=== PATIENT | male | born 1980 | race Caucasian/White ===

== ENCOUNTER → 2017-11-17 15:21 | Outpatient (CLI) | payer MEDICARE, SELFPAY ==
[2017-11-17 16:50] LABS: Amphetamine Urine VISTA NEGATIVE (<1000 ng/mL); Barbiturate Urine VISTA NEGATIVE (< 200 ng/mL); Benzodiazepine Urine VISTA NEGATIVE (< 200 ng/mL); Cocaine Urine VISTA NEGATIVE (< 300 ng/mL); Ecstacy Urine VISTA NEGATIVE (< 500 ng/mL); Methadone Urine VISTA NEGATIVE (< 300 ng/mL); PCP Urine VISTA NEGATIVE (< 25 ng/mL); THC Urine VISTA NEGATIVE (< 50 ng/mL); Vista UDS pH Range 7
== END ==
PROVIDERS: Visit Provider Anesthesiology Pain Medicine
DX: F11.20 Opioid dependence, uncomplicated (principal)
CPT/HCPCS: 80307

== ENCOUNTER 2018-10-04 17:05 | Inpatient (IN) | payer MEDICARE, SELFPAY ==
[2016-02-25 19:01] VITALS: BMI 29.9
[2018-10-04 17:33] VITALS: BMI 26.9
[2018-10-04 17:34] VITALS: BMI 26.9
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
[2018-10-04 20:00] VITALS: BP 114/68; PULSE 86; RESP 16; TEMP 36.6; O2SAT 99
[2018-10-04] MEDS: Sertraline 50 MG Tablet PO (20:04)
[2018-10-04 21:00] VITALS: BP 111/76; PULSE 82; RESP 16; TEMP 36.8; O2SAT 100
[2018-10-04 22:20] VITALS: BP 120/71; PULSE 83; RESP 16; TEMP 36.9; O2SAT 99
[2018-10-04] MEDS: Acetaminophen 325 MG Tablet PO (22:31)
[2018-10-04] MEDS: oxyCODONE 5 MG Tablet PO (22:32)
[2018-10-04 23:00] VITALS: BP 119/78; PULSE 83; RESP 16; TEMP 36.8; O2SAT 100
[2018-10-05] VITALS (21 sets, daily range): BP systolic 111–147; BP diastolic 62–88; PULSE 62–92; RESP 16; TEMP 36.6–36.9; O2SAT 96–100
[2018-10-05] MEDS: Acetaminophen 325 MG Tablet PO (04:33)
[2018-10-05] MEDS: oxyCODONE 5 MG Tablet PO (04:33)
[2018-10-05] MEDS: Methylphenidate HCl 5 MG Tablet 10 MG PO ×3 (07:05→16:37)
--- NOTE | 2018-10-05 10:25 | CASEMGMT ---
RN AYDIN DEPUTY DIRECTOR OF FINANCE CM to room to meet with patient for initial transition planning/care coordination assessment. SIERRA PERRIN introduced self and role at [facility]. Pt voices understanding and consents to assessment at this time. Pt resting in bed in no distress at this time. Pt is A/O at this time and answers all questions appropriately. Care providers, pharmacy, and demographics verified/updated at this time. PCP: Easton Gilbert Specialists: Lyndsey, pain mgmt. Sybil Neurosurgeon @ [place] Preferred Pharmacy: [facility] Insurance: [facility] A & B Prescription Benefit: Yes but does not remember the name Living Will/HPOA: States does not have LW, but has HCPOA, who is his mother, Shira Valdivia. Copies not on file. Pt state he will ask his mother if she can bring in paperwork. LNOK: Mom and dad Living Arrangements: Lives with his parents in the basement of their cabin. States there are rails on the stairs and denies concerns. Independent. States parents are supportive and able to help if needed. DME: [facility] has the following DME: Uses a cane on occasion. Has a shower chair, walker, and W/C but does not use these currently. Pt states no need for further DME at this time. HHC/SNF: Has used a HHC in [facility] in the past but does not remember the name of the agency. Has been to [place], [facility], and [facility]. Denies need for HHC on discharge. Pt wishes to return home and states has no concerns with going home at time of discharge. CM to follow for and further discharge planning/needs. Pt voices no further concerns/needs at this time. Advised pt to ask for CM if any further questions/concerns/needs arise. Voices understanding. PLAN: Home with family support. Alo FRANCISCO RN, CM
[2018-10-05] MEDS: Sertraline 50 MG Tablet PO (11:43)
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
--- NOTE | 2018-10-05 22:41 | NURSING ---
pt notified of Dr. Solorio response concerning intrathecal and order for benadryl. Pt became angry swearing and yelling that he was going to pull out cath and leave and that he cant take benadryl, offered to get pt vistaril pt agreed. pt on phone with his mother.
--- NOTE | 2018-10-05 22:45 | NURSING ---
took in vistaril pt continued to be angry told nurse to get out he refused offer of vistaril. states he is worried about getting another infection. offered to call Dr. Solorio again. pagehao and notified that pt and his mother are concerned that pt is getting an infection at the site. asked rn pull back tape and look at insertion site slight edema and pink/red color no active drainage . Dr. Solorio will call hospitalist.
--- NOTE | 2018-10-05 22:48 | NURSING ---
Dr. Deras called rn updated on pt concerns. will be up to see pt.
--- NOTE | 2018-10-05 23:00 | NURSING ---
Dr. Deras checked intrathecal site updated Dr. Solorio and removed intrathecal line. DSD applied. pt skin red where old tape removed. Dr. Deras notified of mother & pt concern for infection and that in past cbc has been normal but sed rate and crp were elevated when pt got infection of his hip.
--- NOTE | 2018-10-05 23:02 | PCM.HOSP.N ---
Hospitalist Note Called with noted onset discomfort at insertion site pump line. Dressing removed, appearance mild irritation focally at insertion. Discussed with Dr. Solorio, he requested removal as data already collected and successful pump trial. Line removed with dyed blue tip intact. Line was minimal in and kinked, thus suspect at some point when onset discomfort patient had accidentally dislodged line and the medication was likely irritating the tissue secondary to being dislodged. Dr. Solorio updated. He notes plan for evaluation of patient in AM and if clinically appropriate planned discharge. Will restart patient chronic pain regimen now.
[2018-10-05] MEDS: hydrOXYzine PAM 25 MG Capsule 50 MG PO (23:16)
[2018-10-05] MEDS: Ondansetron ODT 4 MG Tablet 8 MG PO (23:16)
[2018-10-05 23:31] LABS: Absolute Lymphocyte Count 1.86 X10^3/ul (0.83-4.51); Absolute Neutrophil Count 11.8 X10^3/uL (2.0-7.7); Basophil# 0.04 X10^3/uL; Basophil% 0.3 % (0-1); Eosinophil# 0.11 X10^3/uL; Eosinophils% 0.7 % (0-5); Hematocrit 47.5 % (40-54); Hemoglobin 16.5 g/dl (13.0-16.5); Lymphocyte # 1.86 X10^3/ul (4.0); Lymphocyte % 12.6 % (19-41); Mean Corp Hgb Conc 34.7 g/gl (32-36); Mean Corpuscular Hgb 31.5 pg (27.0-32.0); Mean Corpuscular Volume 90.8 fL (80-94); Mean Platelet Vol. 9.8 fl (6.2-12.0); Monocyte# 0.98 X10^3/uL; Monocyte% 6.6 % (0-10); Neutrophil # 11.77 X10^3/uL (2.7-7.7); Neutrophil % 79.6 % (47-70); Platelet Count 285 K/mm3 (150-450); RBC Distribution Width CV 13.2 % (11.6-14.6); Red Blood Count 5.23 M/mm3 (4.6-6.2); White Blood Count 14.8 K/mm3 (4.4-11.0)
[2018-10-05 23:34] LABS: POSITIVE COUNT NO; POSITIVE DIFFERENTIAL NO; POSITIVE MORPHOLOGY NO
[2018-10-05 23:37] LABS: Erythrocyte Sedimentation Rate 3 mm/hr (0-15)
[2018-10-05 23:56] LABS: CRP < 2.90 mg/L (0.0-3.0)
--- NOTE | 2018-10-06 00:14 | NURSING ---
pt came to nursing station apologized to rn for yelling and swearing earlier. pt expressing his frustrations with hx of pain and infections from hip injury. gave emotional support. pt asking for snacks showed pt where refreshment area is and got pt soda. pt appreciative and returned to his room.
[2018-10-06 03:10] VITALS: BP 124/87; PULSE 81; RESP 16; TEMP 36.4; O2SAT 99
[2018-10-06] MEDS: oxyCODONE 5 MG Tablet PO (03:13)
[2018-10-06] MEDS: Acetaminophen 325 MG Tablet PO (03:13)
[2018-10-06] MEDS: Methylphenidate HCl 5 MG Tablet 10 MG PO (07:04)
--- NOTE | 2018-10-06 08:02 | DCINST_ITS ---
- Discharge Diagnoses Current Active Problems: Current Active and Chronic Problems Uncontrolled pain (Acute) Pain pump trial (Acute) Reason(s) for Visit for Discharge Instructions: Pain pump trial You will use the following diet at home:: Regular Your food should be the consistency of: Regular Your liquids should be the consistency of: Regular/Thin Discharge Activity: Return to Normal Activity Weight Bearing Status: Weight bearing as tolerated Call your doctor if your incision/area has: Continuous Slow Oozing, Sudden Increased Bleeding, Increased Pain/ Swelling, Increased Redness Call your doctor if you observe: Fever of 101 or Higher Additional Instructions: Continue to use your pain medications as previously prescribed by pain management. You have been prescribed a one-week course of antibiotics. Complete antibiotics. Continue to remain active. Follow-up with pain management and your primary care doctor. Allergies/Adverse Reactions: Allergies diphenhydramine [From Benadryl] Adverse Reaction (Verified 10/06/18 00:54) Other restlessness works opposite per pt hydrocodone Adverse Reaction (Verified 02/25/16 19:04) Other LEGS TWITCHING,CHILLS promethazine HCl [From Phenergan] Adverse Reaction (Verified 02/25/16 19:04) Other LEG TWITCHING Medications to take at Discharge Oxycodone HCl/Acetaminophen [Percocet 5-325] 1 tablet PO Q4H 10/20/15 Adderall Xr 30 mg Capsule 30 mg PO DAILY 10/04/18 Oxycodon-Acetaminophen 7.5-325 7.5 mg PO BID 10/04/18 Oxycodone CR 20 mg PO BID 10/04/18 Cephalexin [Keflex] 500 mg PO Q6 #28 capsule 10/06/18 The following prescriptions were given: Cephalexin [Keflex] 500 mg PO Q6 #28 capsule Primary Care Physician: Caitlin Gilbert PA [Primary Care Provider] - Please follow up with your Primary Care Physician in: within 2 weeks Test Results: Test results from this visit will be discussed in further detail at your follow- up appointment, if applicable. Please Follow Up With: Ciro Solorio MD When: as scheduled Proposed Discharge Date: 10/06/18
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
[2018-10-06] MEDS: Sertraline 50 MG Tablet PO (08:09)
[2018-10-06 08:14] VITALS: BP 129/79; PULSE 103; RESP 18; TEMP 36.4; O2SAT 99
[2018-10-06] MEDS: oxyCODONE 5 MG Tablet 7.5 MG PO (09:44)
[2018-10-06] MEDS: Ketorolac 30 MG/ML Syringe IM (11:12)
== END 2018-10-06 11:18 | disposition home or self-care (01) | DRG 92 ==
PROVIDERS: Family Medicine; Admitting Provider Internal Medicine; Family Provider Physician Assistant; PCP Physician Assistant; Referring Provider Internal Medicine; Visit Provider Internal Medicine
DX: G89.4 Chronic pain syndrome (principal); T85.620A Displacement of cranial or spinal infusion catheter, initial encounter; M79.652 Pain in left thigh; M25.552 Pain in left hip; S79.9 Unspecified injury of hip and thigh; V89.2XXS Person injured in unspecified motor-vehicle accident, traffic, sequela; S79.912S Unspecified injury of left hip, sequela; F90.9 Attention-deficit hyperactivity disorder, unspecified type; F07.81 Postconcussional syndrome; F32.9 Major depressive disorder, single episode, unspecified; Z72.0 Tobacco use
CPT/HCPCS: 36415; 85025; 85652; 86140; J3490

== ENCOUNTER 2018-11-11 12:14 | Day surgery (SDC) | payer MEDICARE, SELFPAY ==
[2018-11-11 13:29] VITALS: BP 112/75; PULSE 68; RESP 16; TEMP 36.8; O2SAT 100; BMI 27.1
[2018-11-11] MEDS: Vancomycin IV 1,000 MG/200 ML BAG 200 MG IV (15:22)
--- NOTE | 2018-11-11 15:26 | RAD_ITS ---
STUDY: FLUOROSCOPIC IMAGES FOR INSERTION OF PAIN PUMP REASON FOR EXAM: Male, 38 years old. Insertion of pain pump TECHNIQUE: 2 intraoperative fluoroscopic examinations and lumbar spine are present. COMPARISON: None. FINDINGS: 2 fluoroscopic exams demonstrate normal appearance and disc spacing of the visualized lumbar spine with intraoperative partially viewed pump placement and instrumentation. RAD/Lumbar Spine 2 or 3 Views IMPRESSION: Fluoroscopic findings as above. Electronically Signed: Saqib Corona DO at 8:55 EST , Service support ,
[2018-11-11] MEDS: Cefazolin 2 GM in 0.9% Normal Saline 100 ML IV (15:27)
[2018-11-11] MEDS: Bupivacaine 0.25% 30 ML Vial (16:16)
[2018-11-11 16:57] VITALS: BP 112/75; BP 95/66; PULSE 73; RESP 16; TEMP 36.6; O2SAT 100
[2018-11-11 17:00] VITALS: BP 108/89; BP 112/75; PULSE 74; RESP 16; O2SAT 100
[2018-11-11 17:15] VITALS: BP 112/75; BP 118/85; PULSE 70; RESP 16; O2SAT 100
[2018-11-11 17:26] VITALS: BP 112/75; BP 112/82; PULSE 69; RESP 16; TEMP 36.9; O2SAT 100
[2018-11-11 17:50] VITALS: BP 112/75; BP 127/69; PULSE 71; RESP 16; TEMP 37.2; O2SAT 100
== END 2018-11-11 18:06 | disposition home or self-care (01) ==
LOC: SDC 12:16 → AC 12:17
PROVIDERS: Family Provider Physician Assistant; PCP Physician Assistant; Referring Provider Anesthesiology Pain Medicine; Visit Provider Anesthesiology Pain Medicine
PROC: (CPT 62350; principal; 2018-11-11 14:00)
DX: G89.4 Chronic pain syndrome (principal); F17.220 Nicotine dependence, chewing tobacco, uncomplicated; M54.16 Radiculopathy, lumbar region; M54.5 Low back pain; M96.1 Postlaminectomy syndrome, not elsewhere classified; Z79.2 Long term (current) use of antibiotics; Z79.891 Long term (current) use of opiate analgesic; Z79.899 Other long term (current) drug therapy
CPT/HCPCS: 62350; 62362; 72100; 76000; J7120; J2405; J3490

== ENCOUNTER 2019-12-30 11:15 | Emergency (ER) | payer MEDICARE, SELFPAY ==
[2019-12-30 11:20] VITALS: BP 158/101; PULSE 103; RESP 18; TEMP 36.7; O2SAT 99; BMI 31.6
--- NOTE | 2019-12-30 11:31 | CT_ITS ---
STUDY: CT BRAIN WITHOUT CONTRAST REASON FOR EXAM: Male, 39 years old. PARAESTHESISAS, HEADACHE, ELEVATED BP RADIATION DOSAGE (If Supplied By Facility): CTDIvol = ( 44.99 ) mGy, DLP = ( 796.11 ) mGycm TECHNIQUE: Transaxial CT imaging of the brain was performed without administration of intravenous contrast material. Individualized dose optimization techniques were used for this CT. COMPARISON: No relevant priors. FINDINGS: Normal soft tissue structures. Normal calvarium. Normal size ventricles and extra-axial spaces for the patient''s age. Normal white matter tracts of the cerebral hemispheres. Normal basal ganglia and thalami. Normal brainstem. Normal cerebellum. There is no intracranial hemorrhage. There are no findings of an acute ischemic infarction. Normal visualized paranasal sinuses. CT/Brain/Head without Contrast IMPRESSION: Normal unenhanced CT scan of the brain. Electronically Signed: Regis Aaron MD at 12:09 EDT Tel , Service support ,
--- NOTE | 2019-12-30 11:31 | EKG12_ITS ---
Test Reason : Blood Pressure : / mmHG Vent. Rate : 102 BPM Atrial Rate : 102 BPM P-R Int : 148 ms QRS Dur : 078 ms QT Int : 334 ms P-R-T Axes : 046 027 046 degrees QTc Int : 435 ms Sinus tachycardia Otherwise normal ECG Confirmed by LORE GIBBS, JH ([id number]), graphics editor NAMRATA SWANSON ([id number] on 01/01/2020 8:28:49 AM Referred By: MICHAEL Confirmed By:JH TORREZ MD
--- NOTE | 2019-12-30 11:39 | NURSING ---
NO OLD EKGS
[2019-12-30 11:54] LABS: Absolute Lymphocyte Count 1.18 X10^3/uL (0.83-4.51); Absolute Neutrophil Count 6.8 X10^3/uL (2.0-7.7); Basophil# 0.02 X10^3/uL; Basophil% 0.2 % (0-1); Eosinophil# 0.02 X10^3/uL; Eosinophils% 0.2 % (0-5); Hematocrit 44.3 % (40-54); Hemoglobin 15.2 g/dL (13.0-16.5); Lymphocyte # 1.18 X10^3/ul (4.0); Lymphocyte % 13.4 % (19-41); Mean Corp Hgb Conc 34.3 g/dL (32-36); Mean Corpuscular Hgb 30.7 pg (27.0-32.0); Mean Corpuscular Volume 89.5 fL (80-94); Mean Platelet Vol. 9.8 fl (6.2-12.0); Monocyte# 0.77 X10^3/uL; Monocyte% 8.8 % (0-10); NRBC Flagged by Analyzer 0 % (0-5); Neutrophil # 6.76 X10^3/uL (2.7-7.7); Neutrophil % 77.1 % (47-70); Platelet Count 226 K/mm3 (150-450); RBC Distribution Width CV 12.8 % (11.6-14.6); RBC Distribution Width SD 41.9 fl (35.1-43.9); Red Blood Count 4.95 M/mm3 (4.6-6.2); White Blood Count 8.8 K/mm3 (4.4-11.0)
[2019-12-30] MEDS: MethylPREDNISolone 125 MG/2 ML Vial IV (12:04)
[2019-12-30] MEDS: 0.9% Normal Saline 1,000 ML 150 ML IV (12:04)
[2019-12-30 12:05] LABS: Anion Gap 7 (5-15); BUN 9 mg/dL (7-18); Chloride 106 mmol/L (98-107); EST Glomerular Filtration Rate 161 mL/min (>60); Est Glom Filt Rate - Afr Amer 194 mL/min (>60); Estimated Creatinine Clearance 168.57 ml/min; Glucose 89 mg/dL (74-106); Potassium 4.2 mmol/L (3.5-5.1); Sodium Level 138 mmol/L (136-145)
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
--- NOTE | 2019-12-30 12:34 | ED.DEP ---
ED Disposition - Plan for ED Patient: Instructions: ED DERMATITIS Atopic Eczema, ED HBP No Tx Prescriptions: Prednisone [Deltasone] 20 mg PO BID #10 tab Transmission Status: Pending to [id number] Referrals: Caitlin Gilbert PA [Primary Care Provider] - 5-7 Days
== END 2019-12-30 12:50 | disposition home or self-care (01) ==
LOC: ED 12:11
PROVIDERS: Emergency Provider Emergency Medicine; PCP Physician Assistant
DX: L30.9 Dermatitis, unspecified (principal); R03.0 Elevated blood-pressure reading, without diagnosis of hypertension; F41.9 Anxiety disorder, unspecified; Z72.0 Tobacco use
CPT/HCPCS: 70450; 80048; 85025; 93005; 96361; 96374; 99285; J7030; A4216

== ENCOUNTER 2020-02-26 11:27 | Emergency (ER) | payer MEDICARE, SELFPAY ==
[2020-02-26 11:29] VITALS: BP 192/105; PULSE 147; RESP 20; TEMP 36.6; O2SAT 99; BMI 29.0
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
--- NOTE | 2020-02-26 11:49 | ED.RN ---
this rn into rm. pt appears agitated. talking to male friend in the room. this rn asked pt to put gown on. pt getting dressed. states he is leaving. this rn will notify
--- NOTE | 2020-02-26 11:50 | EKG12_ITS ---
Test Reason : GEN ILLNESS Blood Pressure : / mmHG Vent. Rate : 109 BPM Atrial Rate : 109 BPM P-R Int : 132 ms QRS Dur : 068 ms QT Int : 326 ms P-R-T Axes : 061 048 051 degrees QTc Int : 439 ms Sinus tachycardia Otherwise normal ECG Confirmed by LORE GIBBS, JH ([id number]), technical writer and editor NAMRATA SWANSON ([id number] on 02/27/2020 10:01:02 AM Referred By: STEFANO Confirmed By:JH TORREZ MD
[2020-02-26] MEDS: LORazepam 2 MG/ML Syringe 1 MG IV (12:50)
[2020-02-26 13:01] LABS: Absolute Lymphocyte Count 1.74 X10^3/uL (0.83-4.51); Absolute Neutrophil Count 5.4 X10^3/uL (2.0-7.7); Basophil# 0.03 X10^3/uL; Basophil% 0.4 % (0-1); Eosinophil# 0.03 X10^3/uL; Eosinophils% 0.4 % (0-5); Hematocrit 46.3 % (40-54); Hemoglobin 15.9 g/dL (13.0-16.5); Lymphocyte # 1.74 X10^3/ul (4.0); Lymphocyte % 21.1 % (19-41); Mean Corp Hgb Conc 34.3 g/dL (32-36); Mean Corpuscular Hgb 30.3 pg (27.0-32.0); Mean Corpuscular Volume 88.4 fL (80-94); Mean Platelet Vol. 9.3 fl (6.2-12.0); Monocyte# 1.03 X10^3/uL; Monocyte% 12.5 % (0-10); NRBC Flagged by Analyzer 0 % (0-5); Neutrophil # 5.41 X10^3/uL (2.7-7.7); Neutrophil % 65.4 % (47-70); Platelet Count 279 K/mm3 (150-450); RBC Distribution Width CV 12.9 % (11.6-14.6); RBC Distribution Width SD 41.6 fl (35.1-43.9); Red Blood Count 5.24 M/mm3 (4.6-6.2); White Blood Count 8.3 K/mm3 (4.4-11.0)
[2020-02-26 13:06] VITALS: BP 125/71; PULSE 111; RESP 16; TEMP 36.6; O2SAT 99
[2020-02-26 13:13] LABS: Alcohol, Blood (Medical)-Serum < 3.0 mg/dL
[2020-02-26 13:18] LABS: ALB/GLOB Ratio 1.2 RATIO (0.9-2.4); AST(SGOT) 31 U/L (15-37); Alanine Aminotransfer ALT/SGPT 50 U/L (16-61); Albumin, Serum 4.4 g/dL (3.2-5.0); Alkaline Phosphatase 94 U/L (45-117); Anion Gap 7 (5-15); BUN 18 mg/dL (7-18); BUN/Creat Ratio 21.6 RATIO (10-20); Calcium,Total 9.3 mg/dL (8.5-10.1); Chloride 105 mmol/L (98-107); Creatinine, Serum 0.83 mg/dL (0.70-1.30); EST Glomerular Filtration Rate 110 mL/min (>60); Est Glom Filt Rate - Afr Amer 133 mL/min (>60); Estimated Creatinine Clearance 109.96 ml/min; Globulin 3.7 g/dL (2.2-4.2); Glucose 93 mg/dL (74-106); Potassium 3.6 mmol/L (3.5-5.1); Protein, Total 8.1 g/dL (6.4-8.2); Sodium Level 138 mmol/L (136-145)
[2020-02-26 13:55] VITALS: BP 125/85; PULSE 98; RESP 16; O2SAT 98
--- NOTE | 2020-02-26 14:19 | NURSING ---
states he does not need urine sample
== END 2020-02-26 14:35 | disposition home or self-care (01) ==
PROVIDERS: Emergency Provider Emergency Medicine; PCP Physician Assistant
DX: F15.10 Other stimulant abuse, uncomplicated (principal); G89.29 Other chronic pain; Z79.891 Long term (current) use of opiate analgesic
CPT/HCPCS: 80053; 80320; 85025; 93005; 96361; 96374; 99285; J7040; G0480

== ENCOUNTER 2020-03-29 13:35 | Emergency (ER) | payer MEDICARE, SELFPAY ==
[2020-03-29 13:36] VITALS: BP 153/118; PULSE 139; RESP 20; TEMP 36.9; O2SAT 98; BMI 33.0
--- NOTE | 2020-03-29 13:52 | RAD_ITS ---
STUDY: X-RAY CHEST REASON FOR EXAM: Male, 39 years old. TACHYCARDIA TECHNIQUE: Single AP portable view of the chest. COMPARISON: None. FINDINGS: The lungs are clear and expanded. There is no demonstrated pleural abnormality. Normal size heart. Normal mediastinum and daria. Normal visualized pulmonary arteries. Normal visualized aortic arch and descending thoracic aorta. Normal visualized thoracic spine. Normal visualized ribs, clavicles, and shoulders. There is no demonstrated abnormality of the visualized soft tissue structures of the upper abdomen. RAD/Chest 1 View (Portable) IMPRESSION: Normal x-ray examination of the chest. Electronically Signed: Joselito Mi, at 14:36 EDT , Service support ,
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
[2020-03-29 14:19] LABS: Absolute Neutrophil Count 4.8 X10^3/uL (2.0-7.7); Basophil# 0.04 X10^3/uL; Basophil% 0.5 % (0-1); Eosinophils% 1.3 % (0-5); Hematocrit 46.5 % (40-54); Hemoglobin 16.2 g/dL (13.0-16.5); Lymphocyte % 25.3 % (19-41); Mean Corp Hgb Conc 34.8 g/dL (32-36); Mean Corpuscular Hgb 30.2 pg (27.0-32.0); Mean Corpuscular Volume 86.6 fL (80-94); Mean Platelet Vol. 9.6 fl (6.2-12.0); Monocyte# 0.94 X10^3/uL; Monocyte% 11.9 % (0-10); NRBC Flagged by Analyzer 0 % (0-5); Neutrophil # 4.79 X10^3/uL (2.7-7.7); Neutrophil % 60.6 % (47-70); Platelet Count 361 K/mm3 (150-450); RBC Distribution Width SD 40.1 fl (35.1-43.9); Red Blood Count 5.37 M/mm3 (4.6-6.2); White Blood Count 7.9 K/mm3 (4.4-11.0)
--- NOTE | 2020-03-29 14:28 | ED.RN ---
DR OJRGENSEN NOTIFIED PT WALKED OUT OF THE DEPARTMENT. PT STATED IF YOU WANT ME TO STAY YOU CAN ARREST ME.
--- NOTE | 2020-03-29 14:31 | NURSING ---
1415 pt refusing to walk back into room and states you need to call the police to arrest me. RN informed pt that he was not here against his will and that if he would return to his room she would take his bp which was his original request. Pt refused and left.
--- NOTE | 2020-03-29 14:36 | CM.ED ---
Social Work Consult: Anxiety Patient left prior to this outreach and education social worker being able to complete assessment. Alexa ZHU, TANIA
[2020-03-29 14:39] LABS: ALB/GLOB Ratio 1.2 RATIO (0.9-2.4); AST(SGOT) 42 U/L (15-37); Alanine Aminotransfer ALT/SGPT 59 U/L (16-61); Albumin, Serum 4.4 g/dL (3.2-5.0); Alkaline Phosphatase 90 U/L (45-117); Anion Gap 8 (5-15); BUN 6 mg/dL (7-18); BUN/Creat Ratio 7.7 RATIO (10-20); Chloride 105 mmol/L (98-107); Creatinine, Serum 0.78 mg/dL (0.70-1.30); EST Glomerular Filtration Rate 118 mL/min (>60); Est Glom Filt Rate - Afr Amer 143 mL/min (>60); Estimated Creatinine Clearance 117.01 ml/min; Globulin 3.7 g/dL (2.2-4.2); Glucose 110 mg/dL (74-106); Potassium 3.6 mmol/L (3.5-5.1); Protein, Total 8.1 g/dL (6.4-8.2); Sodium Level 136 mmol/L (136-145)
== END 2020-03-29 14:37 | disposition left against medical advice (07) ==
LOC: ED 14:24
PROVIDERS: Emergency Provider Emergency Medicine; PCP Physician Assistant
DX: F41.9 Anxiety disorder, unspecified (principal); R00.0 Tachycardia, unspecified
CPT/HCPCS: 36415; 71045; 80053; 80320; 84484; 85025; 99282; G0480

== ENCOUNTER 2020-03-29 17:47 | Emergency (ER) | payer MEDICARE, SELFPAY ==
[2020-03-29 13:36] VITALS: BMI 33.0
[2020-03-29 17:48] VITALS: BP 154/99; PULSE 127; RESP 20; TEMP 36.6; O2SAT 100; BMI 33.1
[2020-03-29 17:53] VITALS: BP 154/99; PULSE 130; RESP 20; O2SAT 98
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
--- NOTE | 2020-03-29 18:19 | CT_ITS ---
HISTORY: MENTAL STATUS CHANGE/COMBATIVE/HALLUCINATIONS TECHNIQUE: Multiple axial images were obtained of the brain without intravenous contrast. A radiation dose optimization technique was used for this scan. COMPARISON: None FINDINGS: # of images incl. paperwork: 248 Visualized portions of the paranasal sinuses and mastoid air cells are free of disease. Brain volume is normal. Oquendo-white differentiation is preserved. No hydrocephalus. No acute ischemia. No acute intracranial hemorrhage. CT/Brain/Head without Contrast IMPRESSION: Normal. ASPECT 10. Individualized dose optimization techniques were used for this CT. at 2022 Reported and signed by: Amrit Lopez MD Electronically Signed: Amrit Lopez MD at 20:21 EDT Tel , Service support ,
--- NOTE | 2020-03-29 18:19 | EKG12_ITS ---
Test Reason : MENTAL HEALTH Blood Pressure : / mmHG Vent. Rate : 120 BPM Atrial Rate : 120 BPM P-R Int : 120 ms QRS Dur : 066 ms QT Int : 312 ms P-R-T Axes : 066 056 046 degrees QTc Int : 440 ms Sinus tachycardia Septal infarct , age undetermined Abnormal ECG Confirmed by LORE GIBBS, JH ([id number]), scientific editor GENESIS MENARD ([id number]) on 04/01/2020 1:02:08 PM Referred By: Confirmed By:JH TORREZ MD
[2020-03-29] MEDS: Ziprasidone IM 20 MG/ML VIAL IM (18:22)
[2020-03-29 19:04] LABS: Bacteria 0 SEEN /hpf (None Seen); Mucous, Urine 0 SEEN /hpf (<or=2+); Red Blood Cells-Urine 0 SEEN /hpf (0-5)
[2020-03-29 19:05] LABS: Color, Urine Yellow (Yellow); Glucose, Dipstick Normal (Normal); Ketone-Dipstick 50 mg/dl (Negative); Leukocyte Esterase-Dipstick 25 /ul (Negative); Nitrite-Dipstick Negative (Negative); Occult Blood-Urine Negative /ul (Negative); Protein-Dipstick 30 mg/dl (Negative); Specific Gravity, Urine 1.015 (1.002-1.030); Urine Clarity Sl. Cloudy (Clear); Urine Urobilinogen 1 mg/dl (Normal)
[2020-03-29 19:08] LABS: Urine Bilirubin Dipstick 1 mg/dL (Negative)
[2020-03-29] MEDS: LORazepam 2 MG/ML Syringe IM (19:12)
[2020-03-29 19:13] LABS: Squamous Epithelial Cells - UA 0-5 SEEN /hpf (0-5); White Blood Cells 0-5 SEEN /hpf (0-5)
[2020-03-29 19:16] LABS: Amphetamine Urine VISTA POSITIVE (<1000 ng/mL); Barbiturate Urine VISTA NEGATIVE (< 200 ng/mL); Benzodiazepine Urine VISTA NEGATIVE (< 200 ng/mL); Cocaine Urine VISTA NEGATIVE (< 300 ng/mL); Ecstacy Urine VISTA NEGATIVE (< 500 ng/mL); Methadone Urine VISTA NEGATIVE (< 300 ng/mL); PCP Urine VISTA NEGATIVE (< 25 ng/mL); THC Urine VISTA NEGATIVE (< 50 ng/mL); Vista UDS pH Range 6
[2020-03-29 19:26] LABS: Thyroid Stim Hormone (TSH) 0.49 uIU/mL (0.358-3.74)
[2020-03-29 20:00] VITALS: BP 118/73; PULSE 105; RESP 15; O2SAT 94
[2020-03-29 21:00] VITALS: BP 104/74; PULSE 96; RESP 18; O2SAT 93
[2020-03-29 22:45] VITALS: BP 104/72; PULSE 83; RESP 16; O2SAT 98
[2020-03-30 00:09] VITALS: BP 124/76; PULSE 88; RESP 16; O2SAT 95
--- NOTE | 2020-03-30 00:40 | ED.RN ---
per dr josue's order restraints removed. pt was reassessed by ed dr and plan of care is to allow pt to sleep. later in the am pt will call for a ride home. ivana cunningham rn [id number]
[2020-03-30 01:26] VITALS: BP 133/75; PULSE 85; RESP 16; O2SAT 95
[2020-03-30 02:00] VITALS: RESP 16
[2020-03-30 03:03] VITALS: RESP 16
[2020-03-30 04:17] VITALS: BP 125/88; PULSE 88; RESP 16; O2SAT 96
--- NOTE | 2020-03-30 06:49 | ED.RN ---
ATTEMPTED TO CALL FOR RIDE HOME. PTS DAD, RADHA, WAS CALLED X3 MESSAGE WAS LEFT. PTS MOM IS IN [place] HAVING BACK SURGERY. PT STATES HE CAN GO TO HIS AUNT'S HOUSE AROUND THE CORNER. PT DID NOT HAVE A SHIRT, PAPER SCRUB WAS PROVIDED.
[2020-03-30 06:50] VITALS: BP 118/63; PULSE 107; RESP 18; O2SAT 97
== END 2020-03-30 06:51 | disposition home or self-care (01) ==
PROVIDERS: Emergency Provider Emergency Medicine; PCP Physician Assistant
DX: R44.2 Other hallucinations (principal); F41.9 Anxiety disorder, unspecified; R00.0 Tachycardia, unspecified; F17.200 Nicotine dependence, unspecified, uncomplicated
CPT/HCPCS: 36415; 70450; 71045; 80053; 80307; 80320; 81001; 84443; 84484; 85025; 93005; 96372; 99282; 99285; A4216; G0480; J3486

== ENCOUNTER → 2020-12-09 16:58 | Outpatient (CLI) | payer MEDICARE, SELFPAY ==
--- NOTE | 2020-12-09 16:20 | RAD_ITS ---
INDICATION: NECK PAIN EXAMINATION/TECHNIQUE: X-RAY - XR Spine Cervical 4 or 5 Views COMPARISON: None. FINDINGS: VERTEBRAE: Preserved vertebral body height. Chronic fracture deformities of the C2 and C3 spinous processes. No acute fracture. No spondylolisthesis. Straightening of the normal cervical lordosis. No significant facet arthropathy. DISCS: Mild disc space narrowing and osteophytosis at C5-6 and C6-7. NECK SOFT TISSUES: No prevertebral soft tissue widening. LUNG APICES: Clear. RAD/Cerv Spine 2 or 3 Views IMPRESSION: Chronic fracture deformities of the C2 and C3 spinous processes. No acute abnormalities. Mild multilevel cervical spondylosis. Electronically Signed: Kobi Torres MD at 21:40 EDT Tel , Service support ,
--- NOTE | 2020-12-09 16:20 | RAD_ITS ---
STUDY: X-RAY - THORACIC SPINE REASON FOR EXAM: Male, 40 years old. NECK PAIN TECHNIQUE: 3 view(s) of the thoracic spine were obtained. COMPARISON: None. FINDINGS: Normal kyphosis of the thoracic spine. Mild dextroscoliosis. Mild loss of height of the T11 and T12 vertebral bodies consistent with mild compression fractures which may be acute, subacute, or chronic. Clinical correlation correlation MRI may be useful. Normal disc space heights. The soft tissue structures are unremarkable. RAD/Thoracic Spine 2 Views IMPRESSION: 1. Mild compression fractures of T11 and T12 which may be acute, subacute, or chronic. Clinical correlation correlation MRI may be useful. 2. Mild dextroscoliosis with mild degenerative disc disease lower thoracic spine. Electronically Signed: Tomy Rowland MD at 8:34 EDT Tel , Service support ,
== END ==
LOC: RAD 17:01
PROVIDERS: PCP Physician Assistant; Referring Provider Anesthesiology Pain Medicine; Visit Provider Anesthesiology Pain Medicine
DX: M54.2 Cervicalgia (principal)
CPT/HCPCS: 72040; 72070

== ENCOUNTER → 2021-07-31 15:01 | Outpatient (CLI) | payer MEDICARE, SELFPAY ==
--- NOTE | 2021-07-31 15:06 | MRI_ITS ---
STUDY: MRI CERVICAL SPINE WITHOUT CONTRAST REASON FOR EXAM: Male, 41 years old. NECK PAIN TECHNIQUE: Standardized fat and water weighted pulse sequences were obtained in the sagittal and axial plane. COMPARISON: Plain film 12/09/2020 FINDINGS: Normal foramen magnum and brainstem-cervical cord junction. Normal craniovertebral junction. Normal anterior atlantoaxial articulation. Normal odontoid process. There is straightening of the normal cervical lordosis. Normal vertebral bodies and posterior osseous elements. C2-3: Normal endplates. Normal disc height and morphology. Normal central canal and intervertebral neuroforamina. C3-4: Loss of intervertebral disc height. There is endplate spondylosis of the vertebral body. Normal central canal and intervertebral neuroforamina. There is bilateral facet arthropathy. C4-5: Loss of intervertebral disc height. There is endplate spondylosis of the vertebral body. Normal central canal and intervertebral neuroforamina. There is bilateral facet arthropathy. C5-6: Loss of intervertebral disc height. There is endplate spondylosis of the vertebral body. Bilateral neural foraminal stenosis. Compression of exiting nerve roots. There is bilateral facet arthropathy. Narrowing of the lateral recess. Posterior disc bulge causes mild impression upon anterior thecal sac. C6-7: Loss of intervertebral disc height. There is endplate spondylosis of the vertebral body. Bilateral neural foraminal stenosis. Compression of exiting nerve roots. There is bilateral facet arthropathy. Narrowing of the left lateral recess. C7-T1: Normal endplates. Normal disc height and morphology. Normal central canal and intervertebral neuroforamina. Normal visualized soft tissue structures. IMPRESSION: (NOT LISTED IN ORDER OF SIGNIFICANCE) There is altered curvature of the normal cervical lordosis. This can suggest neck strain. Multilevel degenerative changes, as described above. Electronically Signed: Miki Burgos MD at 16:09 EST , Service support , MRI/Spine Cervical (Routine)
== END ==
PROVIDERS: PCP Physician Assistant; Visit Provider Anesthesiology Pain Medicine
DX: M54.2 Cervicalgia (principal)
CPT/HCPCS: 72141

== ENCOUNTER → 2022-05-06 | Outpatient (CLI) | payer MEDICARE, SELFPAY ==
[2022-05-06 11:21] LABS: Amphetamine Urine VISTA NEGATIVE (<1000 ng/mL); Barbiturate Urine VISTA NEGATIVE (< 200 ng/mL); Benzodiazepine Urine VISTA NEGATIVE (< 200 ng/mL); Cocaine Urine VISTA NEGATIVE (< 300 ng/mL); Ecstacy Urine VISTA NEGATIVE (< 500 ng/mL); Methadone Urine VISTA NEGATIVE (< 300 ng/mL); PCP Urine VISTA NEGATIVE (< 25 ng/mL); THC Urine VISTA NEGATIVE (< 50 ng/mL); Vista UDS pH Range 7
== END | disposition home or self-care (01) ==
LOC: LAB 10:39
PROVIDERS: PCP Physician Assistant; Referring Provider Anesthesiology Pain Medicine; Visit Provider Anesthesiology Pain Medicine
DX: F11.20 Opioid dependence, uncomplicated (principal)
CPT/HCPCS: 80307

== ENCOUNTER → 2022-10-20 | Outpatient (CLI) | payer MEDICARE, SELFPAY ==
[2022-10-20 17:12] LABS: Amphetamine Urine VISTA NEGATIVE (<1000 ng/mL); Barbiturate Urine VISTA NEGATIVE (< 200 ng/mL); Benzodiazepine Urine VISTA NEGATIVE (< 200 ng/mL); Cocaine Urine VISTA NEGATIVE (< 300 ng/mL); Ecstacy Urine VISTA NEGATIVE (< 500 ng/mL); Methadone Urine VISTA NEGATIVE (< 300 ng/mL); PCP Urine VISTA NEGATIVE (< 25 ng/mL); THC Urine VISTA POSITIVE (< 50 ng/mL); Vista UDS pH Range 5
== END | disposition home or self-care (01) ==
LOC: LAB 15:24
PROVIDERS: PCP Physician Assistant; Visit Provider Anesthesiology Pain Medicine
DX: F11.20 Opioid dependence, uncomplicated (principal)
CPT/HCPCS: 80307